=== PATIENT | female | born 1970 | race Caucasian/White ===

== ENCOUNTER → 2019-10-28 14:46 | Outpatient (CLI) | payer BC, SELFPAY ==
--- NOTE | 2019-10-28 | ECG_ITS ---
APPROVED REPORT Exam: Resting ECG HR:61 bpm ECG Measurements Heart Rate 61 AXES HI 172 P 41 QRSd 92 QRS -2 QT 422 T 36 QTc 424 <Conclusion> Normal sinus rhythm Normal ECG Electronically signed by : Justin Ayala, 10/29/2019 08:08:11
[2019-10-28 15:04] LABS: Basophils # 0.1 K/mm3 (0-0.2); Basophils % 0.6 % (0.1-2.0); Eosinophils # 0.3 K/mm3 (0.0-0.4); Eosinophils % 2.5 % (0.1-12.0); Hematocrit 38.5 % (37.0-47.0); Hemoglobin 12.3 g/dL (12.2-16.2); Lymphocytes # 3.1 K/mm3 (0.7-4.5); Lymphocytes % 30.9 % (10-50); Mean Corpuscular HGB Conc 31.8 g/dL (31.8-35.4); Mean Corpuscular Hemoglobin 26.3 pg (27.0-31.2); Mean Corpuscular Volume 82.8 fl (81-99); Mean Platelet Volume 7.3 fl (7.4-10.4); Monocytes # 0.6 K/mm3 (0.1-1.0); Monocytes % 5.5 % (1.7-9.3); Neutrophils # 6.1 K/mm3 (1.8-7.8); Neutrophils % 60.5 % (37.0-80.0); Platelet Count 494 K/mm3 (142-424); Red Blood Count 4.65 M/mm3 (4.20-5.40); Red Cell Distribution Width 15.4 % (11.5-17.5); White Blood Count 10.1 K/mm3 (4.8-10.8)
[2019-10-28 15:34] LABS: CKMB Relative Index 1.3 U/L (0-4.0); Creatine Kinase 63 U/L (26-192); Creatine Kinase MB 0.8 ng/ml (0.0-3.6); Troponin I < 0.02 ng/ml (0.00-0.06)
[2019-10-28 15:56] LABS: Alanine Aminotransferase 30 U/L (12-78); Albumin Level 3.5 gm/dL (3.4-5.0); Albumin/Globulin Ratio 0.9 (1.1-1.8); Alkaline Phosphatase 135 U/L (46-116); Anion Gap 13.6 mEq/L (5-15); Aspartate Amino Transferase 22 U/L (15-37); Bilirubin,Total 0.2 mg/dL (0.2-1.0); Blood Urea Nitrogen 12 mg/dL (7-18); Calcium 8.9 mg/dL (8.5-10.1); Carbon Dioxide 26 mmol/L (21.0-32.0); Chloride 104 mmol/L (98-107); Creatinine,Serum 0.69 mg/dL (0.55-1.02); Estimated Glomerular Filt Rate 91 ml/min (>60); Free T4 (Free Thyroxine) 0.73 ng/dl (0.76-1.46); GFR (African American) 110 ML/MIN (>60); Globulin 3.8 gm/dl (1.3-3.2); Potassium 4.6 mmoL/L (3.5-5.1); Sodium 139 mmol/L (136-145); Thyroid Stimulating Hormone 3.73 uIU/ml (0.358-3.740); Total Protein,Serum 7.3 gm/dL (6.4-8.2)
[2019-10-28 16:39] LABS: Glucose 82 mg/dL (74-106)
[2019-10-30 09:58] LABS: Vitamin B12 477 pg/mL (232-1245)
== END ==
PROVIDERS: Visit Provider Physician Assistant
DX: R07.9 Chest pain, unspecified (principal); R20.2 Paresthesia of skin
CPT/HCPCS: 36415; 80053; 82550; 82553; 82607; 84439; 84443; 84484; 85025; 93005

== ENCOUNTER → 2020-08-10 15:23 | Outpatient (CLI) | payer BC, SELFPAY ==
--- NOTE | 2020-08-10 15:35 | XR_ITS ---
PROCEDURE: XR ELBOW RT MIN 3V CLINICAL INDICATION: R ELBOW PAIN COMPARISON: No exams were available for comparison FINDINGS: No fracture or dislocation. No lytic or blastic change. There is normal mineralization. The joint spaces are well-preserved. No significant degenerative/arthritic changes. No erosive changes evident. Other findings:None. IMPRESSION: No acute findings. Dictated by: Monico Levy MD 08/10/2020 15:55 Monico Levy MD in [place] 08/10/2020 15:55
== END ==
PROVIDERS: PCP Family Medicine; Visit Provider Family Medicine
DX: M25.521 Pain in right elbow (principal)
CPT/HCPCS: 73080

== ENCOUNTER → 2021-01-12 10:09 | Outpatient (CLI) | payer BC, SELFPAY ==
[2021-01-12 11:32] LABS: Basophils % 0.5 % (0.1-2.0); Eosinophils % 0.2 % (0.1-12.0); Hematocrit 34.5 % (37.0-47.0); Hemoglobin 10.1 g/dL (12.2-16.2); Lymphocytes # 1.5 K/mm3 (0.7-4.5); Lymphocytes % 24.8 % (10-50); Mean Corpuscular HGB Conc 29.2 g/dL (31.8-35.4); Mean Corpuscular Hemoglobin 21.6 pg (27.0-31.2); Monocytes # 0.5 K/mm3 (0.1-1.0); Monocytes % 7.7 % (1.7-9.3); Neutrophils # 4.1 K/mm3 (1.8-7.8); Neutrophils % 66.7 % (37.0-80.0); Platelet Count 383 K/mm3 (142-424); Red Blood Count 4.66 M/mm3 (4.20-5.40); Red Cell Distribution Width 17.3 % (11.5-17.5); White Blood Count 6.1 K/mm3 (4.8-10.8)
== END ==
PROVIDERS: PCP Family Medicine; Visit Provider Family Medicine
DX: Z20.820 Contact with and (suspected) exposure to varicella (principal); U07.1 COVID-19
CPT/HCPCS: 36415; 85025; U0003

== ENCOUNTER → 2021-05-30 11:06 | Outpatient (CLI) | payer BC, SELFPAY ==
[2021-05-31 10:37] LABS: FSH 5.2 mIU/mL (.)
[2021-06-04 22:57] LABS: 1,25 Dihydroxy Vitamin D 53 pg/mL (.); 1,25-Dihydroxy, Vitamin D-2 <10 pg/mL (.); 1,25-Dihydroxy, Vitamin D-3 53 pg/mL (.)
== END ==
PROVIDERS: Visit Provider Nurse Practitioner Obstetrics & Gynecology
DX: Z01.419 Encounter for gynecological examination (general) (routine) without abnormal findings (principal)
CPT/HCPCS: 36415; 82652; 82670; 83001; 83002

== ENCOUNTER → 2021-06-06 13:39 | Outpatient (CLI) | payer BC, SELFPAY ==
--- NOTE | 2021-06-06 13:39 | US_ITS ---
PROCEDURE: US TRANSVAGINAL CLINICAL INDICATION: bulky uterus, abnormal vaginal bleeding COMPARISON: No exams were available for comparison FINDINGS: UTERUS: 12cm x 7cmx 6cm with a combined endometrial thickness of 29.3mm LEFT OVARY: [id number] with a volume of 17.8ml. 2 cm left ovarian cyst. RIGHT OVARY: [id number] with a volume of 7.9ml. Moderate to severe thickening of the endometrium at 2.9 cm with some heterogeneous echogenicity of the endometrium. No cul-de-sac fluid demonstrated IMPRESSION: Enlarged uterus with abnormal thickening of the endometrium with a small left ovarian cyst. Dictated by: Monico Levy MD 06/07/2021 10:54 Monico Levy MD in [place] 06/07/2021 10:54
== END ==
LOC: RAD 13:39
PROVIDERS: PCP Family Medicine; Visit Provider Nurse Practitioner Obstetrics & Gynecology
DX: N93.9 Abnormal uterine and vaginal bleeding, unspecified (principal); N85.2 Hypertrophy of uterus
CPT/HCPCS: 76830

== ENCOUNTER → 2021-06-18 11:59 | Outpatient (CLI) | payer BC, SELFPAY ==
[2021-06-18 12:47] LABS: Basophils # 0.1 K/mm3 (0-0.2); Basophils % 0.6 % (0.1-2.0); Eosinophils # 0.2 K/mm3 (0.0-0.4); Eosinophils % 1.9 % (0.1-12.0); Hematocrit 32.9 % (37.0-47.0); Hemoglobin 10.3 g/dL (12.2-16.2); Lymphocytes # 2.3 K/mm3 (0.7-4.5); Mean Corpuscular HGB Conc 31.4 g/dL (31.8-35.4); Mean Corpuscular Hemoglobin 27.8 pg (27.0-31.2); Mean Corpuscular Volume 88.7 fl (81-99); Mean Platelet Volume 7.8 fl (7.4-10.4); Monocytes # 0.3 K/mm3 (0.1-1.0); Monocytes % 3.9 % (1.7-9.3); Neutrophils # 5.9 K/mm3 (1.8-7.8); Neutrophils % 67.5 % (37.0-80.0); Platelet Count 524 K/mm3 (142-424); Red Blood Count 3.71 M/mm3 (4.20-5.40); White Blood Count 8.7 K/mm3 (4.8-10.8)
[2021-06-18 13:32] LABS: Anion Gap 11.9 mEq/L (5-15); Blood Urea Nitrogen 16 mg/dl (7-17); Carbon Dioxide 27 mmol/L (22.0-30.0); Chloride 105 mmol/L (98-107); Estimated Glomerular Filt Rate 89 ml/min (>60); GFR (African American) 108 ML/MIN (>60); Glucose 106 mg/dl (74-100); HCG Qualitative, Serum Negative (Negative); Potassium 3.9 mmoL/L (3.5-5.1); Sodium 140 mmol/L (136-145)
== END ==
PROVIDERS: Visit Provider Nurse Practitioner Obstetrics & Gynecology
DX: Z01.818 Encounter for other preprocedural examination (principal); Z11.52 Encounter for screening for COVID-19; N92.1 Excessive and frequent menstruation with irregular cycle
CPT/HCPCS: 36415; 80048; 84703; 85025; U0003

== ENCOUNTER 2021-06-20 07:27 | Day surgery (SDC) | payer BC, SELFPAY ==
[2021-06-20] VITALS (11 sets, daily range): BP systolic 108–149; BP diastolic 54–74; PULSE 56–77; RESP 12–18; TEMP 36.4–36.9; O2SAT 95–98; BMI 35.6
--- NOTE | 2021-06-20 07:52 | P.PN_ITS ---
[facility] Anesthesia Checklist - Patient Identification Patient Identification: Arm Band - Structural Data Admitted From: Home Planned Operative Procedure/s: Hysteroscopy, d & C, myosure Consent for Planned Operative Procedure(s) Verified: Yes - NPO Status Verified Time NPO: 00:00 - Airway Assessment C-Spine Mobility Assessed: Yes TMJ Mobility Assessed: Yes Dentition: Good Dentition - Neurological Assessment Level of Consciousness: Awake Hx Seizures: No Numbness or tingling in extremities: No - Anesthesia Plan Anesthesia Risk discussed: Yes Anesthesia Plan: Verified ASA Class: II Anesthesia Type: General [facility] History I have reviewed the patient's past medical history: Yes Medical History: Reports:: Hypertension *Have you ever received a pneumonia vaccine?: No *Have you received a flu vaccine this season?: No Other Medical History: Reports: Hypothyroidism Anesthesia experience/problems:: None Amputation: No Fractures: No - *Social History Smoking Status: Never smoker Alcohol Intake: never Substance Use Type: denies use *Occupational Status:: other *Travel in the last 8 weeks: None Family Hx:: No significant family history
--- NOTE | 2021-06-20 09:14 | HMH.OPNOTE ---
Date of procedure: 06/20/21 Pre-op Diagnosis:: Menorrhagia thickened endometrium Post-op Diagnosis:: Menorrhagia, thickened endometrium Procedure performed:: Hysteroscopy and MyoSure Surgeon:: Calvin Brady MD SOFTWARE SYSTEMS ANALYST:: Manfred Lange Anesthesia: LMA Estimated blood loss (mL): 50 Clinical Note:: She is a 51-year-old lady that has had heavy periods for the last few months. She has anemia as well. She had an ultrasound that showed endometrium greater than 2 cm in thickness. As result of that she was offered hysteroscopy and MyoSure. She had an endometrial biopsy in my office but I do not think I got a very good sample. Operative findings:: She had a thickened endometrium that was quite lush. Operative note:: She was taken the operating room where LMA anesthesia was found be adequate. She was prepped and draped in the normal sterile fashion in the lithotomy position. Weighted speculum is placed in vagina and the anterior lip of the cervix was grasped with a tenaculum. Lerma dilators used to dilate the cervix up to approximately 6 mm. I inserted the MyoSure hysteroscope into the uterine cavity and then added the resector. I resected the large portion of the endometrial cavity and this was sent to pathology. She tolerated she did well and was taken to recovery room in excellent condition. All sponge, instrument and needle counts were correct. The estimated blood loss was less than 50 cc. Condition: stable Disposition: PACU Specimens:: Endometrial sampling Complications:: None
--- NOTE | 2021-06-20 09:22 | P.PN_ITS ---
[facility] Anesthesia Record Part I Intake, IV Amount: 500 Estimated blood loss (mL): 50 Urine output (mL): 0 Blood Pressure: 138/65 SaO2: 95 Pulse Rate: 77 Respiratory Rate: 12 Temperature: 98.5 F Patient is:: Awake, Stable Stable to PACU at:: 09:20
--- NOTE | 2021-06-20 10:43 | PC.NURSE ---
0954-pt transported to post op via stretcher w/jim rails up and left in care of SALENA Heredia, detailed bedside report given to SALENA Heredia, bed locked in lowest position, vss, pt stable
--- NOTE | 2021-06-22 10:30 | HMH.ANESII ---
[facility] Anesthesia Record Part II Discharge Time: 09:50 Destination: formerly [facility] PACU nurse assessment reviewed?: Yes Patient Condition:: Good Anesthesia Complications:: None Swallowing reflex intact?: Yes Cyanosis?: No Blood Pressure: 112/54 Pulse Rate: 56 Temperature: 97.6 F Mental Status: Alert & Oriented Pain level:: 0 Nausea and/or vomitting:: None Intake, IV Amount: 1,500
[2021-06-22 10:31] VITALS: BP 112/54; PULSE 56; TEMP 36.4
== END 2021-06-20 11:07 | disposition home or self-care (01) ==
LOC: OR 07:30
PROVIDERS: PCP Family Medicine; Visit Provider Nurse Practitioner Obstetrics & Gynecology
PROC: 0UDB8ZZ Extraction of Endometrium, Via Natural or Artificial Opening Endoscopic (ICD-10-PCS; CPT 58558; principal; 2021-06-20 09:00)
DX: N95.0 Postmenopausal bleeding (principal); N92.1 Excessive and frequent menstruation with irregular cycle; N85.2 Hypertrophy of uterus; I10 Essential (primary) hypertension; E03.9 Hypothyroidism, unspecified; Z79.899 Other long term (current) drug therapy
CPT/HCPCS: 58563; 96374; 96375; J2405

== ENCOUNTER → 2022-01-21 12:23 | Outpatient (CLI) | payer BC, SELFPAY ==
--- NOTE | 2022-01-21 12:41 | XR_ITS ---
FINAL REPORT CLINICAL HISTORY: COVID TESTING, cough FINDINGS: A single view of the chest was obtained. The heart is normal in size. The mediastinum is unremarkable. There is mild bibasilar atelectasis or scarring. There is no active disease. There is no pleural effusion. There is no pneumothorax. There is no acute osseous abnormality. IMPRESSION: No acute cardiopulmonary process. Reviewed, Interpreted and Dictated by Jf Oviedo III, MD Transcribed by Kamini Rios Authenticated by Jf Oviedo III, MD on 01/21/2022 02:59:20 PM [facility]
[2022-01-21 13:14] LABS: Basophils # 0.1 K/mm3 (0-0.2); Basophils % 0.5 % (0.1-2.0); Eosinophils # 0.2 K/mm3 (0.0-0.4); Eosinophils % 1.6 % (0.1-12.0); Hematocrit 43.9 % (37.0-47.0); Hemoglobin 14.1 g/dL (12.2-16.2); Lymphocytes # 2.2 K/mm3 (0.7-4.5); Lymphocytes % 20.3 % (10-50); Mean Corpuscular HGB Conc 32.2 g/dL (31.8-35.4); Mean Corpuscular Hemoglobin 30.3 pg (27.0-31.2); Mean Corpuscular Volume 94.4 fl (81-99); Mean Platelet Volume 7.7 fl (7.4-10.4); Monocytes # 0.4 K/mm3 (0.1-1.0); Monocytes % 3.8 % (1.7-9.3); Neutrophils # 7.8 K/mm3 (1.8-7.8); Neutrophils % 73.8 % (37.0-80.0); Platelet Count 541 K/mm3 (142-424); Red Blood Count 4.65 M/mm3 (4.20-5.40); Red Cell Distribution Width 13.2 % (11.5-17.5); White Blood Count 10.6 K/mm3 (4.8-10.8)
== END ==
LOC: COVID.OUT 12:24
PROVIDERS: PCP Family Medicine; Visit Provider Family Medicine
DX: Z20.822 Contact with and (suspected) exposure to COVID-19 (principal)
CPT/HCPCS: 36415; 71045; 85025

== ENCOUNTER → 2022-05-16 10:08 | Outpatient (CLI) | payer BC, SELFPAY ==
--- NOTE | 2022-05-16 10:10 | MM_ITS ---
PROCEDURE INFORMATION: Exam: MG Bilateral Screening 3D Mammography Exam date and time: 05/16/2022 10:07 AM Age: 52 years old Clinical indication: Screening examination TECHNIQUE: Imaging protocol: Bilateral Screening tomosynthesis and 2D mammography including computer-aided detection (CAD) when performed. COMPARISON: No relevant prior studies available. FINDINGS: MAMMOGRAPHY: Breast composition: There are scattered areas of fibroglandular density. Mass: None. Architectural distortion: None. Calcifications: No suspicious calcifications. Asymmetric density: None. Skin thickening: None. Axillary adenopathy: None. IMPRESSION: No mammographic evidence of malignancy. Annual screening is recommended unless otherwise clinically indicated. ASSESSMENT: BI-RADS Category 1: Negative
== END ==
PROVIDERS: PCP Family Medicine; Visit Provider Family Medicine
DX: Z12.31 Encounter for screening mammogram for malignant neoplasm of breast (principal)
CPT/HCPCS: 77063; 77067

== ENCOUNTER 2022-10-16 09:25 | Emergency (ER) | payer BC, SELFPAY ==
[2022-10-16 09:43] VITALS: BP 181/93; PULSE 60; RESP 18; TEMP 36.9; O2SAT 98; BMI 39.4
--- NOTE | 2022-10-16 09:44 | EXP.UTC ---
Discharge Plan Disposition Patient Disposition: Home, Self-Care Condition: Good Prescriptions Prescriptions: New ofloxacin 0.3 % drops See Rx Instructions .ROUTE .COMPLEX Qty: 5 0RF Rx Instructions: put 2 drps into affected eye(s) every 4 h x 2 days, then 1 drp 4 times/day days 3-7 No Action irbesartan 300 mg tablet 300 mg PO Mirena 20 mcg/24 hours (7 yrs) 52 mg intrauterine device 1 device INTRAUTERI ONCE methimazole 5 mg tablet 5 mg PO BID bisoprolol-hydrochlorothiazide 2.5-6.25 mg tablet 2 tab PO DAILY ferrous sulfate 325 mg (65 mg iron) tablet 325 mg PO TID ergocalciferol (vitamin D2) 50 mcg (2,000 unit) tablet 50 mcg PO DAILY multivitamin Tablet 1 tab PO DAILY meloxicam 15 mg tablet 15 mg PO DAILY fexofenadine [Amy Allergy] 60 mg tablet 60 mg PO BID progesterone micronized [Prometrium] 100 mg capsule 100 mg PO DAILY 30 Days Qty: 30 5RF Referrals Follow up/Referrals: Holger Valadez MD [Primary Care Provider] - See instructions Activity Restrictions/Add. Instructions Additional Instructions/Restrictions: Use the eye drops as directed. Strict hand washing in the house hold, because conjunctivitis is very contagious. Follow up with your regular doctor. GO TO THE ER FOR ANY WORSENING SYMPTOMS OR CONCERNS Clinical Impressions Clinical Impression: Conjunctivitis Instructions Patient Instructions: How to Instill Eye Drops, Conjunctivitis, DI for Conjunctivitis Discharge ED [place] [facility] [place] Stated complaint: Eye redness w/drainage Time Seen by Provider: 10/16/22 09:44 History of Present Illness Provider Complaint: She states that since very early this morning, she has been having bilateral eye matting with yellowish discharge. She denies any foreign body or injury. Related Data Home Medications Medication Instructions Recorded Confirmed bisoprolol 2.5 2 tab PO DAILY Hypertension 05/30/21 05/15/22 mg-hydrochlorothiazide 6.25 mg tablet methimazole 5 mg tablet 5 mg PO BID hyperthyroidism 05/30/21 05/15/22 ergocalciferol (vitamin D2) 50 mcg 50 mcg PO DAILY Diet supplement 06/18/21 05/15/22 (2,000 unit) tablet ferrous sulfate 325 mg (65 mg 325 mg PO TID Diet supplement 06/18/21 05/15/22 iron) tablet fexofenadine 60 mg tablet (Amy 60 mg PO BID Allergy symptoms 06/18/21 05/15/22 Allergy) meloxicam 15 mg tablet 15 mg PO DAILY Arthritis 06/18/21 05/15/22 multivitamin 1 tab PO DAILY Diet supplement 06/18/21 05/15/22 irbesartan 300 mg tablet 300 mg PO 04/10/22 05/15/22 levonorgestrel 20 mcg/24 hours (8 1 device intrauterine ONCE 05/15/22 05/15/22 yrs) 52 mg intrauterine device (Mirena) Previous Rx's Medication Instructions Recorded progesterone micronized 100 mg 100 mg PO DAILY 30 days #30 caps 01/04/22 capsule (Prometrium) ofloxacin 0.3 % eye drops See Rx Instructions ophthalmic 10/16/22 (eye) .COMPLEX #5 mL Allergies Allergy/AdvReac Type Severity Reaction Status Date / Time No Known Allergies Allergy Verified 10/16/22 09:45 [facility] Disclaimer: The information contained in this section may have been updated after the patient was seen, as this information can be updated by other users. Social History Smoking Status: Never smoker alcohol intake: never substance use type: denies use current occupational status: other Travel in the last 8 weeks: None ROS Obtained: Yes All systems reviewed & no additional complaints except as documented Constitutional Constitutional: Denies chills and Denies fever(s) Eyes Eyes: Reports eye discharge ENT Ears, Nose, Mouth, and Throat: Denies dizziness, Denies otalgia and Denies sore throat Cardiovascular Cardiovascular: Denies chest pain Respiratory Respiratory: Denies shortness of breath, Denies chest congestion, Denies cough, Denies stridor
[2022-10-16 10:11] VITALS: BP 181/93; PULSE 60; RESP 18; TEMP 36.9
== END 2022-10-16 10:14 | disposition home or self-care (01) ==
PROVIDERS: Emergency Provider Nurse Practitioner Family; PCP Family Medicine
DX: H10.9 Unspecified conjunctivitis (principal)
CPT/HCPCS: 99212; G0463

== ENCOUNTER → 2023-04-03 12:35 | Outpatient (CLI) | payer BC, SELFPAY ==
--- NOTE | 2023-04-03 12:35 | US_ITS ---
PROCEDURE: US TRANSVAGINAL CLINICAL INDICATION: irreg. bleeding and iud in position COMPARISON: No exams were available for comparison FINDINGS: UTERUS: 12cm x 7cmx 6cm with a combined endometrial thickness of 3.4mm. There is an IUD in the lower uterine segment and upper cervix. LEFT OVARY: [id number] with a volume of 37.4ml.The left ovary there are 2 small follicles measuring 2.9 centimeters and 2.4 centimeters. There is a reviewed by a thin wall. RIGHT OVARY: 2cmx [id number] with a volume of 2.7ml. The right ovary has a small echogenic focus. Doppler flow to both ovaries are seen. There is no fluid in the cul-de-sac. IMPRESSION: 1. Bulky anteverted uterus with a thin endometrium. 2. IUD out of position in the lower uterine segment /upper cervix. 3. The ovaries appear normal with a couple small follicles in the left ovary. Dictated by: Calvin Brady MD 04/06/2023 09:02 Calvin Brady MD in [place] 04/06/2023 09:02
== END ==
LOC: RAD 12:35
PROVIDERS: PCP Family Medicine; Visit Provider Nurse Practitioner Obstetrics & Gynecology
DX: N92.1 Excessive and frequent menstruation with irregular cycle (principal); Z97.5 Presence of (intrauterine) contraceptive device
CPT/HCPCS: 76830

== ENCOUNTER → 2023-05-23 10:31 | Outpatient (CLI) | payer BC, SELFPAY ==
--- NOTE | 2023-05-23 10:31 | MM_ITS ---
PROCEDURE INFORMATION: Exam: MG Bilateral Screening 3D Mammography Exam date and time: 05/23/2023 10:48 AM Age: 53 years old Clinical indication: Screening mammogram. No personal or family history of breast cancer TECHNIQUE: Imaging protocol: Bilateral Screening tomosynthesis and 2D mammography including computer-aided detection (CAD) when performed. COMPARISON: MG MM DIG SCREENING MAMM BI W/CAD 05/16/2022 10:07 AM FINDINGS: MAMMOGRAPHY: Breast composition: There are scattered areas of fibroglandular density. Mass: None. Architectural distortion: No new or suspicious architectural distortion. Calcifications: No new or suspicious calcifications are present Asymmetric density: No new or suspicious asymmetric density is present Skin thickening: None. Axillary adenopathy: 0.9 cm suspected lymph node within the upper outer posterior right breast (axillary tail) should be further assessed with spot views in CC/MLO projection. Ultrasound should also be performed. IMPRESSION: 0.9 cm suspected lymph node within the upper outer posterior right breast (axillary tail) should be further assessed with spot views in CC/MLO projection. Ultrasound should also be performed. ASSESSMENT: BI-RADS category 0: Incomplete-need additional imaging evaluation
== END ==
PROVIDERS: PCP Family Medicine; Visit Provider Nurse Practitioner Obstetrics & Gynecology
DX: Z12.31 Encounter for screening mammogram for malignant neoplasm of breast (principal)
CPT/HCPCS: 77063; 77067

== ENCOUNTER → 2023-06-13 13:24 | Outpatient (CLI) | payer BC, SELFPAY ==
--- NOTE | 2023-06-13 13:25 | US_ITS ---
PROCEDURE INFORMATION: Exam: US Right Breast, Complete MG Right Diagnostic Breast Tomosynthesis Exam date and time: 06/13/2023 1:35 PM Age: 53 years old Clinical indication: Patient recalled on the basis of a screening mammogram for further evaluation; Right breast; mass TECHNIQUE: Imaging protocol: Complete ultrasound of all four quadrants of the right breast and the retroareolar regions, including ultrasound of the axilla when performed. Right Diagnostic tomosynthesis and 2D mammography including computer-aided detection (CAD) when performed. Unilateral or bilateral exam. COMPARISON: 1. MG MM DIG SCREENING MAMM BI W/CAD 05/23/2023 10:48 AM 2. MG MM DIG SCREENING MAMM BI W/CAD 05/16/2022 10:07 AM FINDINGS: MAMMOGRAPHY: Digital diagnostic spot compression views of the right axillary tail demonstrates a fat containing benign-appearing subcentimeter intramammary lymph node. ULTRASOUND: Sonographic images of the left breast including the retroareolar region, all 4 quadrants and the axilla do not demonstrate any solid masses. Incidental 0.7 cm cyst in the 10 o'clock axis 10 cm from the nipple. No architectural distortion or acoustical shadowing. No skin thickening or axillary adenopathy. IMPRESSION: No mammographic or sonographic evidence of malignancy. Benign lymph node in the right axillary tail. Annual bilateral mammographic screening is recommended unless otherwise clinically indicated. ASSESSMENT: BI-RADS Category 2: Benign
== END ==
LOC: RAD 13:25
PROVIDERS: PCP Family Medicine; Visit Provider Nurse Practitioner Obstetrics & Gynecology
DX: R92.8 Other abnormal and inconclusive findings on diagnostic imaging of breast (principal)
CPT/HCPCS: 76641; 77061; 77065; G0279

== ENCOUNTER 2023-08-08 14:53 | Emergency (ER) | payer BC, SELFPAY ==
--- NOTE | 2023-08-08 15:10 | HMH.EDGENADL ---
Discharge Plan Disposition Patient Disposition: Home, Self-Care Chief Complaint: Vaginal Bleeding Prescriptions Prescriptions: No Action irbesartan 300 mg tablet 300 mg PO methimazole 5 mg tablet 5 mg PO BID ferrous sulfate 325 mg (65 mg iron) tablet 325 mg PO TID ergocalciferol (vitamin D2) 50 mcg (2,000 unit) tablet 50 mcg PO DAILY multivitamin Tablet 1 tab PO DAILY meloxicam 15 mg tablet 15 mg PO DAILY fexofenadine [Amy Allergy] 60 mg tablet 60 mg PO BID triamterene-hydrochlorothiazid 37.5-25 mg tablet 1 tab PO amlodipine 10 mg tablet 10 mg PO bisoprolol fumarate 10 mg tablet 10 mg PO Mirena 21 mcg/24 hours (8 yrs) 52 mg intrauterine device 1 device intrauterine Referrals Follow up/Referrals: Holger Valadez MD [Primary Care Provider] - See instructions Jyoti Gilmore DO [Staff Physician] - See instructions Activity Restrictions/Add. Instructions Additional Instructions/Restrictions: Call your family doctor to establish care for this visit to the emergency department and schedule follow-up within 48 hours to ensure improvement. If you have any worsening of your condition or any other concerning signs or symptoms, return to the emergency department or your primary care doctor for further evaluation. Dr. Gilmore's information has been placed here, you can call if you continue to have worsening symptoms, however maintain your follow-up on the . Clinical Impressions Clinical Impression: Menorrhagia Discharge ED Provider: Julian Murrieta General Adult HPI General Chief complaint: Vaginal Bleeding Stated complaint: BEELDING IN URINATION Time Seen by Provider: 08/08/23 14:59 History of Present Illness HPI narrative: 53-year-old female with history of irregular menstrual bleeding and hypertension presenting with menstrual bleeding. Patient states she is following with gynecology. Next appointment is on . Patient states that she has been bleeding on and off for the past couple of days, but today, started saturating 1 tampon every 1-2 hours. Has been doing that since around 10 AM. No lightheadedness, chest pain, shortness of breath, but patient is having associated abdominal cramping. Passing clots, also having dysuria, uncertain if she is having hematuria given the amount of bleeding. Related Data Home Medications Medication Instructions Recorded Confirmed methimazole 5 mg tablet 5 mg PO BID hyperthyroidism 05/30/21 05/14/23 ergocalciferol (vitamin D2) 50 mcg 50 mcg PO DAILY Diet supplement 06/18/21 05/14/23 (2,000 unit) tablet ferrous sulfate 325 mg (65 mg 325 mg PO TID Diet supplement 06/18/21 05/14/23 iron) tablet fexofenadine 60 mg tablet (Amy 60 mg PO BID Allergy symptoms 06/18/21 05/14/23 Allergy) meloxicam 15 mg tablet 15 mg PO DAILY Arthritis 06/18/21 05/14/23 multivitamin 1 tab PO DAILY Diet supplement 06/18/21 05/14/23 irbesartan 300 mg tablet 300 mg PO 04/10/22 05/14/23 amlodipine 10 mg tablet 10 mg PO 03/31/23 05/14/23 bisoprolol fumarate 10 mg tablet 10 mg PO 03/31/23 05/14/23 triamterene 37.5 1 tab PO 03/31/23 05/14/23 mg-hydrochlorothiazide 25 mg tablet levonorgestrel 21 mcg/24 hours (8 1 device intrauterine 04/16/23 05/14/23 yrs) 52 mg intrauterine device (Mirena) Allergies Allergy/AdvReac Type Severity Reaction Status Date / Time No Known Allergies Allergy Verified 05/14/23 09:53 [facility] Disclaimer: The information contained in this section may have been updated after the patient was seen, as this information can be updated by other users. Medical History Anemia Hypertension Irregular intermenstrual bleeding Overactive thyroid gland Vitamin D deficiency Surgical History History of endometrial ablation Hx of section Family History (Reviewed
[2023-08-08 15:15] VITALS: BP 153/79; PULSE 53; RESP 19; TEMP 36.7; O2SAT 98; BMI 34.0
[2023-08-08 15:19] LABS: Microscopic, Urine URINE MICROSCOPIC (MICROSCOPIC)
[2023-08-08 15:35] LABS: Appearance,Urine CLEAR (Clear); Blood, Urine 3+ (Negative); Color,Urine YELLOW (Yellow); Glucose,Urine (UA) Negative (Negative); Ketones,Urine TRACE (Negative); Leukocyte Esterase,Urine Negative (Negative); Nitrate,Urine Negative (Negative); Protein,Urine 1+ (Negative); Specific Gravity, Urine >= 1.030 (1.005-1.030); Urobilinogen,Urine 0.2 EU/dl (0.2)
[2023-08-08 15:44] LABS: Basophils # 0.1 K/mm3 (0-0.2); Basophils % 0.6 % (0.1-2.0); Eosinophils # 0.3 K/mm3 (0.0-0.4); Eosinophils % 3.2 % (0.1-12.0); Hematocrit 42.8 % (37.0-47.0); Hemoglobin 14.3 g/dL (12.2-16.2); Lymphocytes # 2.4 K/mm3 (0.7-4.5); Lymphocytes % 23.1 % (10-50); Mean Corpuscular HGB Conc 33.4 g/dL (31.8-35.4); Mean Platelet Volume 8.1 fl (7.4-10.4); Monocytes # 0.6 K/mm3 (0.1-1.0); Monocytes % 6.2 % (1.7-9.3); Neutrophils # 6.8 K/mm3 (1.8-7.8); Neutrophils % 66.9 % (37.0-80.0); Platelet Count 367 K/mm3 (142-424); Red Cell Distribution Width 13.5 % (11.5-17.5); White Blood Count 10.2 K/mm3 (4.8-10.8)
[2023-08-08 15:47] LABS: Chloride 107 mmol/L (98-107); Potassium 4.1 mmoL/L (3.5-5.1); Sodium 139 mmol/L (136-145)
--- NOTE | 2023-08-08 15:48 | PC.NURSE ---
Rounded on pt. Warm blanket provided. No other needs voiced.
[2023-08-08 15:50] LABS: Alanine Aminotransferase 59 U/L (12-78); Albumin Level 3.9 g/dl (3.5-5.0); Albumin/Globulin Ratio 1.2 (1.1-1.8); Alkaline Phosphatase 96 U/L (38-126); Anion Gap 12.1 mEq/L (5-15); Aspartate Amino Transferase 45 U/L (14-36); Bilirubin,Total 0.5 mg/dl (0.2-1.3); Blood Urea Nitrogen 18 mg/dl (7-17); Calcium 8.6 mg/dl (8.4-10.2); Carbon Dioxide 24 mmol/L (22.0-30.0); Creatinine Clearance Estimated 100 mL/min (50-200); Estimated Glomerular Filt Rate 52 ml/min (>60); GFR (African American) 63 ML/MIN (>60); Globulin 3.2 g/dL (1.3-3.2); Glucose 91 mg/dl (74-100); Total Protein,Serum 7.1 g/dl (6.3-8.2)
[2023-08-08 15:58] LABS: Bilirubin,Urine Negative (Negative)
[2023-08-08 16:00] LABS: Bacteria,Urine Trace /lpf; Squamous Epithelial Cell,Urine Occasional #/hpf (0-5); WBC,Urine Occasional #/hpf (0-3)
[2023-08-08 16:06] LABS: Activated Partial Thrombo Time 22.7 seconds (22.8-30.6); INR 0.92 (0.9-1.1)
[2023-08-08 16:54] VITALS: BP 153/79; PULSE 53; RESP 19; TEMP 36.7; O2SAT 98
== END 2023-08-08 16:55 | disposition home or self-care (01) ==
PROVIDERS: Emergency Provider Emergency Medicine; PCP Family Medicine
DX: N92.0 Excessive and frequent menstruation with regular cycle (principal); I10 Essential (primary) hypertension; E55.9 Vitamin D deficiency, unspecified; E05.90 Thyrotoxicosis, unspecified without thyrotoxic crisis or storm; D64.9 Anemia, unspecified
CPT/HCPCS: 80053; 81001; 85025; 85610; 85730; 99283

== ENCOUNTER 2023-12-09 16:41 | Outpatient (CLI) | payer BC, SELFPAY ==
--- NOTE | 2023-12-09 16:52 | XR_ITS ---
PROCEDURE INFORMATION: Exam: XR Chest Exam date and time: 12/09/2023 4:55 PM Age: 53 years old Clinical indication: Shortness of breath TECHNIQUE: Imaging protocol: Radiologic exam of the chest. Views: 2 views. COMPARISON: CR XR CHEST PORTABLE 01/21/2022 1:05 PM FINDINGS: Lungs: Mild right basilar atelectasis versus scarring. No pulmonary edema or consolidation. Pleural spaces: No pleural effusion. No pneumothorax. Heart/Mediastinum: Cardiomediastinal silhouette is normal. Bones/joints: No acute abnormality. IMPRESSION: No acute cardiopulmonary disease.
== END 2023-12-09 23:59 ==
LOC: RAD 16:42
PROVIDERS: PCP Family Medicine; Visit Provider Family Medicine
DX: R06.02 Shortness of breath (principal)
CPT/HCPCS: 71046

== ENCOUNTER 2023-12-12 07:43 | Outpatient (CLI) | payer BC, SELFPAY ==
[2023-12-12] MEDS: ALBUTEROL 0.083% 2.5 MG/3 ML NEB IH (08:25)
== END 2023-12-12 23:59 ==
LOC: RT 07:44
PROVIDERS: PCP Family Medicine; Visit Provider Family Medicine
DX: R06.02 Shortness of breath (principal)
CPT/HCPCS: 94060

== ENCOUNTER 2024-01-30 14:51 | Outpatient (CLI) | payer BC, SELFPAY ==
--- NOTE | 2024-01-30 | CA_ITS ---
APPROVED REPORT EXAM: Comprehensive 2D, Doppler, and color-flow Echocardiogram Reaming Machine Operator For Plastic: Lily Corcoran RT(R) Ht: 5 ft 9 in Wt: 226lbs BSA: 2.18 BP: 126/78 mmHg Indications: SOA, edema, anemia, HTN, obesity 2D Dimensions EF AP4 35.70 % GL Strain -11.7 % M-Mode Dimensions RVDd 3.83 cm (0.9-2.6) LA Diam 3.62 cm (1.9-4.0) LVDd 3.40 cm (3.5-5.7) LVDs 2.55 cm (3.5-5.7) IVSd 0.94 cm (0.6-1.1) PWd 0.89 cm (0.6-1.1) EF (Teich) 50.60% FS 25.00% EDV (Teich) 47.40 mL ESV (Teich) 23.40 mL LV Diastology E Decel Time 287 (160-240 msec) E/A Ratio 1.0 Mitral Valve MV E Max Eliseo. 64.0 (40-130 cm/s) MV A Velocity 66.0 (40-130 cm/s) E/A Ratio 0.97 MV PHT 84.0 ms Left Ventricle The left ventricle is normal size. The left ventricular systolic function is normal. The left ventricular ejection fraction is within the normal range. There is normal left ventricular wall thickness. There is normal LV segmental wall motion. The left ventricular diastolic function is normal. LVEF is 60%. Right Ventricle The right ventricle is normal size. The right ventricular systolic function is normal. Atria The left atrium size is normal. The right atrium size is normal. There is no Doppler evidence of interatrial shunt. Aortic Valve The aortic valve is mildly thickened. There is no aortic valvular stenosis. No aortic regurgitation is present. Mitral Valve The mitral valve is normal in structure. No evidence of mitral valve stenosis. There is no mitral valve regurgitation noted. Tricuspid Valve The tricuspid valve leaflets are thin and pliable. Trace tricuspid regurgitation. RVSP is 20-25 mmHg. Pulmonic Valve The pulmonary valve is normal in structure. Trace pulmonic regurgitation. Great Vessels The aortic root is normal in size. The ascending aorta is normal in size. IVC is normal in size and collapses >50% with inspiration. Pericardium There is no pericardial effusion. Other Information Study Quality: Fair Conclusion Normal biventricular systolic function. No significant valvular stenosis or regurgitation. Electronically signed by : Lucille Wetzel MD 02/03/2024 22:44:33
== END 2024-01-30 23:59 ==
LOC: RT 14:52
PROVIDERS: PCP Family Medicine; Visit Provider Family Medicine
DX: R06.02 Shortness of breath (principal); I10 Essential (primary) hypertension; R60.9 Edema, unspecified
CPT/HCPCS: 93306

== ENCOUNTER 2024-07-03 18:04 | Emergency (ER) | payer BC, SELFPAY ==
[2024-07-03 18:20] VITALS: BP 168/85; PULSE 64; RESP 20; TEMP 36.8; O2SAT 97; BMI 32.5
[2024-07-03 18:32] LABS: UTC Strep Screen (Rapid) Negative (Negative)
--- NOTE | 2024-07-03 18:32 | ED_ITS ---
Discharge Plan Disposition Patient Disposition: Home, Self-Care Condition: Good Prescriptions Prescriptions: New azithromycin 250 mg tablet 250 mg PO DIRECTED Qty: 6 0RF Rx Instructions: Take two (2) tablets on day #1, then one (1) tablet day #2 thru #5 No Action irbesartan 300 mg tablet 300 mg PO DAILY methimazole 5 mg tablet 5 mg PO BID ferrous sulfate 325 mg (65 mg iron) tablet 325 mg PO TID bisoprolol fumarate 10 mg tablet 10 mg PO DAILY famotidine 40 mg tablet 40 mg PO DAILY cholecalciferol (vitamin D3) [Vitamin D3] 25 mcg (1,000 unit) Capsule 25 mcg PO DAILY Referrals Follow up/Referrals: Holger Valadez MD [Primary Care Provider] - See instructions Activity Restrictions/Add. Instructions Additional Instructions/Restrictions: Start antibiotics today be sure to take it as ordered with the full length of time although you should start feeling better in 24-48 hours. Change toothbrush and toothpaste 24-48 hours after starting antibiotics Tylenol or Motrin as needed for fever or pain Encourage fluids, water, Gatorade, Powerade, try cold fluids, popsicles, ice cream will make it feel better You are contagious for 24 hours. Avoid kissing anyone, no eating or drinking after anyone. You are contagious. Follow-up the ER for new or worsening symptoms or no noticeable improvement over the next 24-48 hours. Follow-up with PCP this week. Clinical Impressions Clinical Impression: Strep sore throat Instructions Patient Instructions: DI for Strep Throat Print Language Print Language: Prydeinig Discharge ED Provider: Bandar ([facility] [place] HPI General Stated complaint: sore throat body aches Mode of Arrival: Ambulatory Source of Information: Patient Limitations: No Limitations Time Seen by Provider: 07/03/24 18:32 Description of Symptoms (Recalled from Triage Doc. by RN): PATIENT C/O SORE THROAT AND BODY ACHES THAT STARTED THIS MORNING HEENT Symptoms (Recalled from RN notes): Yes Resp Symptoms (Recalled from RN notes): No Skin Symptoms (Recalled from RN notes): No MS Symptoms (Recalled from RN notes): No Functional Status (Recalled from RN notes): WNL History of Present Illness Provider Complaint: 54 yr old female presents for sore throat and body aches that started today, was dx with strep Related Data Home Medications ?Medication ?Instructions ?Recorded ?Confirmed methimazole 5 mg tablet 5 mg PO BID hyperthyroidism 05/30/21 07/03/24 ferrous sulfate 325 mg (65 mg 325 mg PO TID Diet supplement 06/18/21 07/03/24 iron) tablet irbesartan 300 mg tablet 300 mg PO DAILY 04/10/22 07/03/24 bisoprolol fumarate 10 mg tablet 10 mg PO DAILY 03/31/23 07/03/24 cholecalciferol (vitamin D3) 25 25 mcg PO DAILY 07/03/24 07/03/24 mcg (1,000 unit) capsule (Vitamin D3) famotidine 40 mg tablet 40 mg PO DAILY 07/03/24 07/03/24 Previous Rx's ?Medication ?Instructions ?Recorded azithromycin 250 mg tablet 250 mg PO DIRECTED #6 tabs 07/03/24 Allergies Allergy/AdvReac Type Severity Reaction Status Date / Time No Known Allergies Allergy Verified 08/14/23 15:31 Worker's Comp Is this a Worker's Comp case?: No [facility] Disclaimer: The information contained in this section may have been updated after the patient was seen, as this information can be updated by other users. Medical History , IT COORDINATOR) Irregular intermenstrual bleeding Vitamin D deficiency Anemia Hypertension Overactive thyroid gland Surgical History , IT COORDINATOR) History of endometrial ablation Hx of section Family History , IT COORDINATOR) Diabetes Cancer Hypertension Stroke Social History , IT COORDINATOR) Smoking Status: Never smoker alcohol intake: never substance use type: denies use current occupational status: other Travel in the last 8 weeks: None ROS Obtained: Yes All systems reviewed & no additional complaints except as documented Constitutional Constitutional: Reports system reviewed and no additional complaints, except as documented ENT Ears, Nose, Mouth, and Throat: Reports system reviewed and no additional complaints, except as documented, Reports as per HPI and Reports sore throat Cardiovascular Cardiovascular: Reports system reviewed and no additional complaints, except as documented Respiratory Respiratory: Reports system reviewed and no additional complaints, except as documented Musculoskeletal Musculoskeletal: Reports system reviewed and no additional complaints, except as documented Integumentary/Breasts Skin/Breast: Reports system reviewed and no additional complaints, except as documented Endocrine Endocrine: Reports system reviewed and no additional complaints, except as documented Hematologic/Lymphatic Henatologic/Lymphatic: Reports system reviewed and no additional complaints, except as documented Physical Exam General General appearance: alert and in no apparent distress Eye Eye exam: Present normal appearance and PERRL ENT ENT exam: Present mucous membranes moist and TM's normal bilaterally Expanded ENT Exam Throat exam: Present tonsillar erythema and tonsillar exudate Respiratory Respiratory exam: Present normal lung sounds bilaterally Cardiovascular Cardiovascular exam: Present regular rate and normal rhythm Neurological Exam Neurological exam: Present alert and oriented X3 Skin Skin exam: Present warm and intact Medical Decision Making Medical Records Medical records reviewed: Yes I reviewed the patient's medical records. Roel Inquiry Pt receiving controlled substance: No Roel was queried for this patient: No Vital Signs: 07/03/24 18:20 Temperature 98.3 F Temperature Source Oral Pulse Rate [Left Brachial] 64 Respiratory Rate 20 Blood Pressure [Left Arm] 168/85 H Blood Pressure Mean [Left Arm] 112 Blood Pressure Source [Left Arm] Automatic Cuff Blood Pressure Position [Left Arm] Sitting 02 Sat by Pulse Oximetry 97 Oxygen Delivery Method Room Air Lab Data Lab results reviewed: Yes I reviewed the patient's lab results. Lab Results 07/03/24 18:31: Strep Scn [facility] Negative
[2024-07-03 18:41] VITALS: BP 168/85; PULSE 64; RESP 20; TEMP 36.8; O2SAT 97
== END 2024-07-03 18:43 | disposition home or self-care (01) ==
PROVIDERS: Emergency Provider Nurse Practitioner Family; PCP Family Medicine
DX: J02.0 Streptococcal pharyngitis (principal); R07.0 Pain in throat; M79.18 Myalgia, other site
CPT/HCPCS: 87880; 99212; 99214; G0463

== ENCOUNTER 2025-01-22 10:21 | Outpatient (CLI) | payer BC, SELFPAY ==
--- NOTE | 2025-01-22 | XR_ITS ---
PROCEDURE INFORMATION: Exam: XR Lumbosacral Spine Exam date and time: 01/22/2025 10:31 AM Age: 54 years old Clinical indication: Low back pain; Additional info: Lbp, right leg pain TECHNIQUE: Imaging protocol: Radiologic exam of the lumbosacral spine. Views: 2 or 3 views. Total images: 4 COMPARISON: No relevant prior studies available. FINDINGS: Bones/joints: Slight rightward curvature of the lumbar spine with mild degenerative changes. 3 mm retrolisthesis of L1 on L2. Disc space narrowing noted T12-L1, L1-L2. No evidence of acute fracture. Soft tissues: Unremarkable. IMPRESSION: 1. Slight rightward curvature of the lumbar spine with mild degenerative changes. 2. 3 mm retrolisthesis of L1 on L2. 3. No evidence of acute fracture.
== END 2025-01-22 23:59 | disposition home or self-care (01) ==
LOC: RAD 10:22
PROVIDERS: PCP Family Medicine; Visit Provider Family Medicine
DX: M54.50 Low back pain, unspecified (principal); M79.604 Pain in right leg
CPT/HCPCS: 72100

== ENCOUNTER 2025-08-08 07:38 | Outpatient (CLI) | payer BC, SELFPAY ==
--- OUTSIDE RECORDS SUMMARY | 2024-12-03 07:15 | XMS_ITS ---
Author Organization [facility] Address [address] [place] [id number] Care Team Providers Care Agricultural Researcher Name Role Phone Holger Valadez Primary Care Provider Allergies No Known Allergies REASON FOR VISIT b/p has been high Medications Medication SIG (Take, Route, Frequency, Duration) Notes Start Date End Date Status methIMAzole 5 MG 1 tab(s) orally once daily; Duration: 90 days Active Famotidine 40 MG 1 tab(s) orally once a day (at bedtime); Duration: 90 days Active Ferrous Sulfate 325 (65 Fe) MG 1 tab(s) orally 3 times a day; Duration: 30 day(s) Active Albuterol Sulfate HFA 108 (90 Base) MCG/ACT INHALE 1 PUFF BY MOUTH EVERY 4 HOURS NEEDED Active Vitamin D3 50 MCG (2000 UT) 1 tab(s) ora lly once a day 11/09/2020 Active amLODIPine Besylate 10 MG 1 tablet Orall y Once a day; Duration: 30 day(s) 12/03/2024 Active Bisoprolol Fumarate 10 MG 2 tab(s) orall y once a day Active Triamcinolone Acetonide 0.1 % 1 osmar applied topically 3 times a day 05/01/2020 Active Irbesartan 300 MG 1 tab(s) orally once a day Active Vital Signs Blood pressure systolic 180 mm Hg 12/03/19 25 Blood pressure diastolic 104 mm Hg 025 Heart Rate 76 /min 12/03/2024 Height 68.5 in 12/03/2024 Weight 249 lbs 12/03/2024 BMI 37.31 kg/m2 12/03/2024 Encounters Encounter Location Date Provider Diagnosis [facility] [address] [facility] [address] [facility] [address] [place] [id number] 12/03/2024 Holger Valadez Essential hypertensi on I10 Assessments Encounter Date Diagnosis (ICD Code) Assessment Notes Treatment Notes Treatment Clinical Notes Section Notes 12/03/2024 Essential hypertension (ICD-10 - I10) Plan Of Treatment Medication Medication Name Sig Start Date Stop Date Notes amLODIPine Besylate 10 MG 1 tablet Orall y Once a day; Duration: 30 day(s) 12/03/2024 Bisoprolol Fumarate 10 MG 2 tab(s) orally once a day Irbesartan 300 MG 1 tab(s) orally once a day Next Appt Details Follow Up: 2 or 3 Weeks, Jocy son: Provider Name:Holger gao, 11/18/2025 09:30:00 AM, [facility] [facility] [address] [facility], [address], [place], [phone], Progress Notes * Carlos YOUSSEFOB:1970 (55 yo F)Acc No.[id number]:12/03/2024 Progress Notes Patient: Nell PEREZ Provider: Isela Valadez M.D. :1970 A ge:54 Y S ex:Female Date:12/03/2024 Address:[address] [place] [address] [id number] Subjective: * Chief Complaints: * 1 . B/p has been high. * HPI: C ardiology: 54 year old female presents with c/o Chest Pain. c/o Short of Breath. c/o Palpitations. c/o Fatigue. c/o Blood Pressure Elevated P t complains of bp being 159-179/ 90's for the last week or so. Pt states she feels like she is racing to get things done . Pt states she just does not feel right or like herself. * ROS: D ERMATOLOGY: no R breanne. n o H lali. G ASTROENTEROLOGY: no N ausea. n o V omiting. U ROLOGY: no D ifficulty urinating. n o B lood in urine. * Medical History: H ypertension, Hyperthyroidism. * Surgical History: C -Section x 3 , Hysteroscopy- [facility] 06/20/2021. * Hospitalization/Major Diagno stic Procedure: D enies Past Hospitalization. * Family History: F ather: alive, CABG in his 70's, diagnosed with Heart Disease. M other: alive. * Social History: C URRENT TOBACCO USE S moking Status: Patient does NOT smoke. C affeine: no. Marital Status: . Past smoking status: no. Alcohol: No. * Medications: T aking Triamcinolone Acetonide 0.1 % Cream 1 osmar applied topically 3 times a day , Taking Vitamin D3 50 MCG (2000 UT) Tablet 1 tab(s) orally once a day , Taking Ferrous Sulfate 325 (65 Fe) MG Tablet 1 tab(s) orally 3 times a day , Taking Albuterol Sulfate HFA 108 (90 Base) MCG/ACT Aerosol Solution INHALE 1 PUFF BY MOUTH EVERY 4 HOURS NEEDED , Taking Bisoprolol Fumarate 10 MG Tablet 2 tab(s) orally once a day , Taking Irbesartan 300 MG Tablet 1 tab(s) orally once a day , Taking methIMAzole 5 MG Tablet 1 tab(s) orally once daily , Taking Famotidine 40 MG Tablet 1 tab(s) orally once a day (at bedtime) , Medication List reviewed and reconciled with the patient * Allergies: N .K.D.A. Objective: * Vitals: W t:249, Temp:97.9, BP:180/104, HR:76, Nurse:patricio, Ht: 68.5, BMI:37.31. * Examination: C ardiology: General Appearance: p leasant, NAD. H eart sounds: R RR, normal S1, S2. L ungs: c lear, no rales or wheezes. E xtremities: n o leg edema. Assessment: * Assessment: 1. E ssential hypertension - I10 (Primary) Plan: * Treatment: * Follow Up: 2 or 3 Weeks * Images: Billing Information: * Visit Code: 32763 Office Visit, Est Pt., Level 3. * Procedure Codes: * Electronic signature of Mirta Valadez MD on 08/08/2025 at 07:40 AM EDT Sign off status: Pending * Provider: Isela Valadez M.D. Date: 0 12/03/2024 Generated for Kaitlynn vazquez/David/Cb on: 1 07:40 AM EDT History and Physical Notes * HPI (History of Present Illness) Category Sub-Category Detail Notes Category Not es Cardiology Short of Breath Chest Pain Palpitations Fatigue Blood Pressure Elevated Pt complains of bp being 159-179/ 90's for the last week or so. Pt states she feels like she is racing to get things done . Pt states she just does not feel right or like herself Examination Category Sub-Category Detail Notes Category Not es Cardiology Lungs: clear, no rales or wheezes Heart sounds: RRR, normal S1, S2 Extremities: no leg edema General Appearance: pleasant, NAD
--- OUTSIDE RECORDS SUMMARY | 2024-12-20 12:45 | XMS_ITS ---
Author Organization [facility] Address [address] [place] [id number] Care Team Providers Care Motor Assembly Supervisor Name Role Phone Holger Valadez Primary Care Provider Allergies No Known Allergies REASON FOR VISIT 3 week f/u Medications Medication SIG (Take, Route, Frequency, Duration) Notes Start Date End Date Status hydroCHLOROthiazide 12.5 MG 1/2 tablet i n the morning Orally Once a day; Duration: 90 days 12/20/2024 Active Bisoprolol Fumarate 10 MG 2 tab(s) orall y once a day Active amLODIPine Besylate 5 MG 1 tablet Orally Once a day; Duration: 90 days 12/20/2024 Active Irbesartan 300 MG 1 tab(s) orally once a day Active Ferrous Sulfate 325 (65 Fe) MG 1 tab(s) orally 3 times a day; Duration: 30 day(s) Active Albuterol Sulfate HFA 108 (9 0 Base) MCG/ACT INHALE 1 PUFF BY MOUTH EVERY 4 HOURS NEEDED Active methIMAzole 5 MG 1 tab(s) orally once daily; Duration: 90 days Active Famotidine 40 MG 1 tab(s) orally once a day (at bedtime); Duration: 90 days Active Vitamin D3 50 MCG (2000 UT) 1 tab(s) ora lly once a day 11/09/2020 Active Triamcinolone Acetonide 0.1 % 1 osmar appl ied topically 3 times a day 05/01/2020 Active Vital Signs Blood pressure systolic 122 mm Hg 12/20/19 25 Blood pressure diastolic 72 mm Hg 025 Heart Rate 76 /min 12/20/2024 Height 68.5 in 12/20/2024 Weight 250 lbs 12/20/2024 BMI 37.46 kg/m2 12/20/2024 Encounters Encounter Location Date Provider Diagnosis [facility] [address] [facility] [address] [place] [phone] 12/20/2024 Holger Valadez Essential hypertensi on I10 Assessments Encounter Date Diagnosis (ICD Code) Assessment Notes Treatment Notes Treatment Clinical Notes Section Notes 12/20/2024 Essential hypertension (ICD-10 - I10) Plan Of Treatment Medication Medication Name Sig Start Date Stop Date Notes hydroCHLOROthiazide 12.5 MG 1/2 tablet i n the morning Orally Once a day; Duration: 90 days 12/20/2024 Bisoprolol Fumarate 10 MG 2 tab(s) orally once a day amLODIPine Besylate 10 MG 1 tablet Orally Once a day 12/03 amLODIPine Besylate 5 MG 1 tablet Orally Once a day; Duration: 90 days 12/20/2024 Irbesartan 300 MG 1 tab(s) orally once a day Next Appt Details Follow Up: 3 Weeks, Reason: Provider Name:Holger Coffman , 11/18/2025 09:30:00 AM, [address] [facility] [address] [facility], [address], [place], [phone], Progress Notes * Carlos YOUSSEFOB:1970 (55 yo F)Acc No.[id number]:12/20/2024 Progress Notes Patient: Nell PEREZ Provider: Isela Valadez M.D. :1970 A ge:54 Y S ex:Female Date:12/20/2024 Address:[address] [place] [address] [id number] Subjective: * Chief Complaints: * 1 . 3 week f/u. * HPI: C ardiology: 54 year old female presents with c/o Blood Pressure Elevated?Pt here for 3 week f/u. Pt was started on Amlodipine 10mg on 12/03/2024. Pt states that Amlodipine is causing swelling in her hands and feet, pt states swelling in feet gets so bad at times that she cannot bear weight on feet. * ROS: D ERMATOLOGY: no R breanne. n o H lali. G ASTROENTEROLOGY: no N ausea. n o V omiting. U ROLOGY: no D ifficulty urinating. n o B lood in urine. * Medical History: H ypertension, Hyperthyroidism. * Surgical History: C -Section x 3 , Hysteroscopy- [facility] 06/20/2021. * Hospitalization/Major Diagno stic Procedure: D [...] MOUTH EVERY 4 HOURS NEEDED , Taking methIMAzole 5 MG Tablet 1 tab(s) orally once daily , Taking Famotidine 40 MG Tablet 1 tab(s) orally once a day (at bedtime) , Taking Bisoprolol Fumarate 10 MG Tablet 2 tab(s) orally once a day , Taking Irbesartan 300 MG Tablet 1 tab(s) orally once a day , Taking amLODIPine Besylate 10 MG Tablet 1 tablet Orally Once a day , Medication List reviewed and reconciled with the patient * Allergies: N .K.D.A. Objective: * Vitals: W t:250, Temp:97.8, BP:122/72, HR:76, Nurse:patricio, Ht: 68.5, BMI:37.46. * Examination: C ardiology: General Appearance: p leasant, NAD. H EENT: u nremarkable. H eart sounds: R RR, normal S1, S2. L ungs: c lear, no rales or wheezes.?Extremities: n o leg edema. Assessment: * Assessment: 1. E ssential hypertension - I10 (Primary) Plan: * Treatment: * Procedure Codes: 3 074F SYST BP LT 130 MM HG, 3078F DIAST BP < 80 MM HG * Follow Up: 3 Weeks * Images: Billing Information: * Visit Code: 36884 Office Visit, Est Pt., Level 3. * Procedure Codes: 3074F SYST BP LT 130 MM HG. 3078F DIAST BP < 80 MM HG. * Electronic signature of Mirta Valadez MD on 08/08/2025 at 07:40 AM EDT Sign off status: Pending * Provider: Isela Valadez M.D. Date: 0 12/20/2024 Generated for Kaitlynn vazquez/David/Calebitting on: 1 07:40 AM EDT History and Physical Notes * HPI (History of Present Illness) Category Sub-Category Detail Notes Category Not es Cardiology Blood Pressure Elevated Pt here for 3 week f/u. Pt was started on Amlodipine 10mg on 12/03/2024. Pt states that Amlodipine is causing swelling in her hands and feet, pt states swelling in feet gets so bad at times that she cannot bear weight on feet Examination Category Sub-Category Detail Notes Category Not es Cardiology Lungs: clear, no rales or wheezes HEENT: unremarkable Heart sounds: RRR, normal S1, S2 Extremities: no leg edema General Appearance: pleasant, NAD
--- OUTSIDE RECORDS SUMMARY | 2025-01-10 13:00 | XMS_ITS ---
Author Organization [facility] Address [address] [facility] [address] [place] [id number] Care Team Providers Care Screedman/Laborer Name Role Phone Fahad Valadezian Primary Care Provider Allergies No Known Allergies Results Component Value Reference Range Notes P-Basic Metabolic Panel (BMP ) Reviewed date:01/12/2025 12:38:18 PM Interpretation:gluc 115, bun 23 Performing Lab: Notes/Report: CLIA: [id number] Robby Lugo MD, Digital Cartographic Technician [address] [place] [address] , [address], [place] [address] Test performed by [employer], [facility] Sodium 143 135-145 mmol/L Potassium 5.0 3.5-5.3 mmol/L Chloride 108 97-108 mmol/L CO2 26 22-32 mmol/L Glucose 115 65-99 mg/dL BUN 23 6-20 mg/dL Creatinine 0.88 0.50-1.00 mg/dL Calcium 9.5 8.6-10.4 mg/dL eGFR by Creatinine 79 >59 mL/min/1.73m2 X ray : Spine, lumbosacral Reviewed date:02/04/2025 12:35:08 PM Interpretation: Performing Lab: Notes/Report: REASON FOR VISIT 3 week f/u Medications Medication SIG (Take, Route, Frequency, Duration) Notes Start Date End Date Status Albuterol Sulfate HFA 108 (9 0 Base) MCG/ACT INHALE 1 PUFF BY MOUTH EVERY 4 HOURS NEEDED Active methIMAzole 5 MG 1 tab(s) orally once daily; Duration: 90 days Active Famotidine 40 MG 1 tab(s) orally once a day (at bedtime); Duration: 90 days Active Vitamin D3 50 MCG (2000 UT) 1 tab(s) ora lly once a day 11/09/2020 Active Ferrous Sulfate 325 (65 Fe) MG 1 tab(s) orally 3 times a day; Duration: 30 day(s) Active amLODIPine Besylate 5 MG 1 tablet Orally Once a day 12/20/2024 Active hydroCHLOROthiazide 12.5 MG 1/2 tablet i n the morning Orally Once a day 12/20/2024 Active Bisoprolol Fumarate 10 MG 2 tab(s) orall y once a day Active Irbesartan 300 MG 1 tab(s) orally once a day Active Triamcinolone Acetonide 0.1 % 1 osmar appl ied topically 3 times a day 05/01/2020 Active Vital Signs Blood pressure systolic 122 mm Hg 01/11/20 25 Blood pressure diastolic 80 mm Hg 025 Heart Rate 62 /min 01/10/2025 Height 68.5 in 01/10/2025 Weight 246.8 lbs 01/10/2025 BMI 36.98 kg/m2 01/10/2025 Encounters Encounter Location Date Provider Diagnosis [facility] [address] [facility] [address] [place], [place] [id number] 01/10/2025 Holger Valadez Essential hypertensi on I10 ; Renal insufficiency N28.9 ; Pain in right leg M79.604 and Acute bilateral low back pain, unspecified whether sciatica present M54.50 Assessments Encounter Date Diagnosis (ICD Code) Assessment Notes Treatment Notes Treatment Clinical Notes Section Notes 01/10/2025 Essential hypertension (ICD-10 - I10) 01/10/2025 Renal insufficiency (ICD-10 - N28.9) 01/10/2025 Pain in right leg (ICD-10 - M79.604) 01/10/2025 Acute bilateral low back pain, unspecified whether sciatica present (ICD-10 - M54.50) Plan Of Treatment Medication Medication Name Sig Start Date Stop Date Notes amLODIPine Besylate 5 MG 1 tablet Orally Once a day 2024 hydroCHLOROthiazide 12.5 MG 1/2 tablet i n the morning Orally Once a day 12/20/2024 Bisoprolol Fumarate 10 MG 2 tab(s) orally once a day Irbesartan 300 MG 1 tab(s) orally once a day Next Appt Details Follow Up: 4 Months, Reason: Provider Name:Holger Coffman ry, 11/18/2025 09:30:00 AM, [address], [address], [place], [id number], Progress Notes * Carlos YOUSSEFOB:1970 (55 yo F)Acc No.[id number]:01/10/2025 Patient: Nell PEREZ Provider: Isela Valadez M.D. :1970 A ge:54 Y S ex:Female Date:01/10/2025 Address:[address] [place] [address] [id number] Subjective: * Chief Complaints: * 1 . 3 week f/u. * HPI: C ardiology: 54 year old female presents with c/o Blood Pressure Elevated?Pt here for 3 week f/u. Pt's Amlodipine decreased to 5mg and pt was started on HCTZ 12.5 mg on 12/20/2024. Pt states she did check her bp at home for one week after starting HCTZ and it was perfect . L eg: c/o Leg pain P t complains of rt leg pain for a while . Pt states pain started in r[place] and feels like its making its way up . Pt states pain has w orsened and been more consistent o ashley the last 3 weeks or so . * ROS: D ERMATOLOGY: no R breanne. n o H lali. G ASTROENTEROLOGY: no N ausea. n o V omiting. U ROLOGY: no D ifficulty urinating. n o B lood in urine. * Medical History: H ypertension, Hyperthyroidism, Vitamin D deficiency, Iron deficiency anemia. * Surgical History: C -Section x 3 , Hysteroscopy- [facility] 06/20/2021. * Family History: F ather: alive, CABG [...] once a day (at bedtime) , Taking amLODIPine Besylate 5 MG Tablet 1 tablet Orally Once a day , Taking hydroCHLOROthiazide 12.5 MG Tablet 1/2 tablet in the morning Orally Once a day , Taking Bisoprolol Fumarate 10 MG Tablet 2 tab(s) orally once a day , Taking Irbesartan 300 MG Tablet 1 tab(s) orally once a day , Medication List reviewed and reconciled with the patient * Allergies: N .K.D.A. Objective: * Vitals: W t:246.8, Temp:97.9, BP:122/80, HR:62, Nurse:patricio, Ht: 68.5, BMI:36.98. * Examination: C ardiology: General Appearance: p leasant, NAD. H eart sounds: R RR, normal S1, S2. L ungs: c lear, no rales or wheezes. E xtremities: n o leg edema. L ower back: Palpation: n o vertebral spine tenderness, no paraspinal spasm, no tenderness on SI joints. S traight leg raising test: n egative bilaterally. G ait: n ormal. Assessment: * Assessment: 1. E ssential hypertension - I10 (Primary) 2 . R enal insufficiency - N28.9? 3. P ain in right leg - M79.604 4 . A cute bilateral low back pain, unspecified whether sciatica present - M54.50 Plan: * Treatment: Value Reference Range B UN 23 H 6-20 - mg/dL * C alcium 9.5 8.6-10.4 - mg/dL * C hloride 108 97-108 - mmol/L * C O2 26 22-32 - mmol/L * C reatinine 0.88 0.50-1.00 - mg/dL * G lucose 115 H 65-99 - mg/dL * P otassium 5.0 3.5-5.3 - mmol/L * S odium 143 135-145 - mmol/L * e GFR by Creatinine 79 >59 - mL/min/1.73m2 * Shanice Ford 01/12/2025 12:3 8:10 PM > See phone encounter 2.?Renal insufficiency?LAB: P-Basic Metabolic Panel (BMP) (Collection Date & Time - 01/10/2025 04:30 PM)?gluc 115, bun 23* Value Reference Range B UN 23 H 6-20 - mg/dL * C alcium 9.5 8.6-10.4 - mg/dL * C hloride 108 97-108 - mmol/L * C O2 26 22-32 - mmol/L * C reatinine 0.88 0.50-1.00 - mg/dL * G lucose 115 H 65-99 - mg/dL * P otassium 5.0 3.5-5.3 - mmol/L * S odium 143 135-145 - mmol/L * e GFR by Creatinine 79 >59 - mL/min/1.73m2 * Shanice Ford 01/12/2025 12:3 8:10 PM > See phone encounter 3.?Pain in right leg?Imaging: X ray : Spine, lumbosacral (Performed Date - 01/22/2025)* Tory Jaime 02/04/2025 12: 35:03 PM > see phone encounter 4.?Acute bilateral low back pain, unspecified whether sciatica present?Imaging: X ray : Spine, lumbosacral (Performed Date - 01/22/2025)* Tory Jaime 02/04/2025 12: 35:03 PM > see phone encounter * Procedure Codes: 3 074F SYST BP LT 130 MM HG, 3079F DIAST BP 80-89 MM HG * Follow Up: 4 Months * Images: Billing Information: * Visit Code: 27163 Office Visit, Est Pt., Level 4. * Procedure Codes: 3074F SYST BP LT 130 MM HG. 3079F DIAST BP 80-89 MM HG. * Electronic signature of Mirta Valadez MD on 08/08/2025 at 07:40 AM EDT Sign off status: Pending * Provider: Isela Valadez M.D. Date: 0 01/10/2025 Generated for Kaitlynn vazquez/David/Cb on: 1 07:40 AM EDT History and Physical Notes * HPI (History of Present Illness) Category Sub-Category Detail Notes Category Not es Cardiology Blood Pressure Elevated Pt here for 3 week f/u. Pt's Amlodipine decreased to 5mg and pt was started on HCTZ 12.5 mg on 12/20/2024. Pt states she did check her bp at home for one week after starting HCTZ and it was perfect Leg Leg pain Pt complains of rt leg pain for a while . Pt states pain started in [place] and feels like its making its way up . Pt states pain has worsened and been more consistent over the last 3 weeks or so Examination Category Sub-Category Detail Notes Category Not es Lower back Straight leg raising test: negative bilat erally Gait: normal Palpation: no vertebral spine t enderness, no paraspinal spasm, no tenderness on SI joints Cardiology Lungs: clear, no rales or wheezes Heart sounds: RRR, normal S1, S2 Extremities: no leg edema General Appearance: pleasant, NAD
--- OUTSIDE RECORDS SUMMARY | 2025-05-20 05:00 | XMS_ITS ---
Author Organization [facility] Address [address] [facility] [address] [place] [id number] Care Team Providers Care Ropeman Name Role Phone RoryFahadHolger Primary Care Provider [phone] Allergies No Known Allergies Results Component Value Reference Range Notes CBC Venipuncture (in house) Reviewed date:05/20/2025 02:56:32 PM Interpretation: Performing Lab: Notes/Report: wbc 6.4 3.5 - 10 lymph 30.3% 15 - 50 mid 7.0% 2 - 15 gran 62.7% 35 - 80 rbc 5.06 3.5 - 5.5 hgb 15.2 11.5 - 16.5 hct 45.6 35 - 55 mcv 90.1 75 - 100 mch 30.1 25 - 35 mchc 33.4 31 - 38 platlet 376 100 - 400 Cologuard Reviewed date:07/11/2025 05:34:40 PM Interpretation:Negative, Repeat in 3 Years Performing Lab: Notes/Report: Negative, Repeat in 3 Years P-Basic Metabolic Panel (BMP ) Reviewed date:05/24/2025 12:51:37 PM Interpretation:Normal Performing Lab: Notes/Report: Test performed by [employer], [email or web address] [address] [place] [address] , [address], [place] [address] Robby Lugo MD, Machine Learning Intern CLIA: [id number] Sodium 141 135-145 mmol/L Potassium 4.4 3.5-5.3 mmol/L Chloride 105 97-108 mmol/L CO2 25 20-32 mmol/L Glucose 90 65-99 mg/dL BUN 17 6-20 mg/dL Creatinine 0.88 0.50-1.00 mg/dL Calcium 9.9 8.6-10.4 mg/dL eGFR by Creatinine 78 >59 mL/min/1.73m2 P-T4 Free (thyroxine) Reviewed date:05/24/2025 12:51:55 PM Interpretation:Normal Performing Lab: Notes/Report: Test performed by [employer] [address] [place] [address] , [facility], [place] [address] Robby Lugo MD, Machine Learning Intern CLIA: [id number] Thyroxine Free (free T4) 1.30 0.86-1.76 ng/dL P-Iron Reviewed date:05/24/2025 12:52:13 PM Interpretation:Normal Performing Lab: Notes/Report: Test performed by [employer] [address] , [place] [address] Robby Lugo MD, Machine Learning Intern CLIA: [id number] Iron 136 37-145 ug/dL P-TSH Reviewed date:05/24/2025 12:52:25 PM Interpretation:Normal Performing Lab: Notes/Report: Test performed by [employer] [address] [place] [address] , [facility], [place] [address] Robby Lugo MD, Machine Learning Intern CLIA: [id number] TSH 3.18 0.43-5.25 mU/L P-Vitamin D 25-Hydroxy Reviewed date:05/24/2025 12:52:35 PM Interpretation:Normal Performing Lab: Notes/Report: Test performed by [employer] [address] [place] [address] , [place] [address] Robby Lugo MD, Machine Learning Intern CLIA: [id number] Vitamin D 25-Hydroxy 67.8 30.0-100.0 ng/mL Interpretation of Vitamin D 25 OH: < 20 ng/mL - Deficiency 20 - 29 ng/mL - Insufficiency 30 - 100 ng/mL - Sufficiency > 100 ng/mL - Super-therapeutic- toxicity may occur above this level. Clinical correlation required. REASON FOR VISIT 6 month Medications Medication SIG (Take, Route, Frequency, Duration) Notes Start Date End Date Status Triamcinolone Acetonide 0.1 % 1 osmar appl ied topically 3 times a day 05/01/2020 Active Famotidine 40 MG 1 tab(s) orally once a day (at bedtime); Duration: 90 days Active Vitamin D3 50 MCG (2000 UT) 1 tab(s) ora lly once a day 11/09/2020 Active Ferrous Sulfate 325 (65 Fe) MG 1 tab(s) orally daily; Duration: 90 days Active Albuterol Sulfate HFA 108 (9 0 Base) MCG/ACT INHALE 1 PUFF BY MOUTH EVERY 4 HOURS NEEDED Active methIMAzole 5 MG 1 tab(s) orally once daily; Duration: 90 days Active hydroCHLOROthiazide 12.5 MG 1/2 tablet i n the morning Orally Once a day; Duration: 90 days 12/20/2024 Active amLODIPine Besylate 5 MG 1 tablet Orally Once a day; Duration: 90 days 12/20/2024 Active Irbesartan 300 MG 1 tab(s) orally once a day; Duration: 90 days Active Bisoprolol Fumarate 10 MG 2 tab(s) orall y once a day; Duration: 90 days Active Vital Signs Blood pressure systolic 122 mm Hg 05/20/20 25 Blood pressure diastolic 80 mm Hg 025 Heart Rate 70 /min 05/20/2025 Height 68.5 in 05/20/2025 Weight 240 lbs 05/20/2025 BMI 35.96 kg/m2 05/20/2025 Encounters Encounter Location Date Provider Diagnosis [facility] [address] [facility] [address] [id number] 05/20/2025 Holger Valadez Essential hypertensi on I10 ; Hyperthyroidism E05.90 ; Vitamin D deficiency E55.9 ; Iron deficiency anemia due to chronic blood loss D50.0 and Colon cancer screening Z12.11 Assessments Encounter Date Diagnosis (ICD Code) Assessment Notes Treatment Notes Treatment Clinical Notes Section Notes 05/20/2025 Essential hypertension (ICD-10 - I10) 05/20/2025 Hyperthyroidism (ICD-10 - E05.90) 05/20/2025 Vitamin D deficiency (ICD-10 - E55.9) 05/20/2025 Iron deficiency anemia due to chronic blood loss (ICD-10 - D50.0) 05/20/2025 Colon cancer screening (ICD-10 - Z12.11) Plan Of Treatment Medication Medication Name Sig Start Date Stop Date Notes Famotidine 40 MG 1 tab(s) orally once a day (at bedtime); Duration: 90 days Ferrous Sulfate 325 (65 Fe) MG 1 tab(s) orally daily; Duration: 90 days methIMAzole 5 MG 1 tab(s) orally once daily; Duration: 90 days hydroCHLOROthiazide 12.5 MG 1/2 tablet i n the morning Orally Once a day; Duration: 90 days 12/20/2024 amLODIPine Besylate 5 MG 1 tablet Orally Once a day; Duration: 90 days 12/20/2024 Irbesartan 300 MG 1 tab(s) orally once a day; Duration: 90 days Bisoprolol Fumarate 10 MG 2 tab(s) orall y once a day; Duration: 90 days Next Appt Details Follow Up: 6 Months, Reason: Provider Name:Holger Coffman , 11/18/2025 09:30:00 AM, [address] [facility] [address] [facility], [address] , [place], [place], [id number], Progress Notes * Ang YOUSSEFJuan ROB:1970 (55 yo F)Acc No.[id number]:05/20/2025 Progress Notes Patient: Nell PEREZ Provider: Isela Valadez M.D. :1970 A ge:55 Y S ex:Female Date:05/20/2025 Address:[address] [place] [address] [place], [id number] Subjective: * Chief Complaints: * 1 . 6 month. * HPI: C ardiology: 55 year old female presents with c/o Blood Pressure Elevated?Pt here to f/u on hypertension. Pt states she is doing well and does not have any concerns. Pt is fasting today. E ndocrinology: c/o Hypothyroidism P t here to f/u. * ROS: D ERMATOLOGY: no R breanne. n o H lali. G ASTROENTEROLOGY: no N ausea. n o V omiting. U ROLOGY: no D ifficulty urinating. n o B lood in urine. * Medical History: H ypertension, Hyperthyroidism, Vitamin D deficiency, Iron deficiency anemia. * Surgical History: C -Section x 3 , Hysteroscopy- [facility] 06/20/2021. * Hospitalization/Major Diagno stic Procedure: D enies Past Hospitalization. * Family History: F ather: alive, CABG in his 70's, diagnosed with Heart Disease. M other: alive. * Social History: C URRENT TOBACCO USE: No . C affeine: no. Marital Status: . Past [...] Allergies: N .K.D.A. Objective: * Vitals: W t: 240, Temp: 97.9, BP: 122/80, HR: 70, Nurse: patricio, Ht: 68.5, BMI:35.96. * Examination: C ardiology: General Appearance: p leasant, NAD. H eart sounds: R RR, normal S1, S2. L ungs: c lear, no rales or wheezes. E xtremities: n o leg edema. Assessment: * Assessment: 1. E ssential hypertension - I10 (Primary) 2 . H yperthyroidism - E05.90? 3. V itamin D deficiency - E55.9 4 . I melvi deficiency anemia due to chronic blood loss - D50.0 5 . C olon cancer screening - Z12.11 ? Plan: * Treatment: Value Reference Range B UN 17 6-20 - mg/dL * C alcium 9.9 8.6-10.4 - mg/dL * C hloride 105 97-108 - mmol/L * C O2 25 20-32 - mmol/L * C reatinine 0.88 0.50-1.00 - mg/dL * G lucose 90 65-99 - mg/dL * P otassium 4.4 3.5-5.3 - mmol/L * S odium 141 135-145 - mmol/L * e GFR by Creatinine 78 >59 - mL/min/1.73m2 * Nara Santoyoira 05/24/2025 12:22: 24 PM EDT > LM for pt to return [facility] 05/24/2025 12:51:32 PM EDT >pt informed 2.?Hyperthyroidism? Refill methIMAzole Tablet, 5 MG, 1 tab(s), orally, once daily, 90 days, 90, Refills 1.?LAB: P-T4 Free (thyroxine) (Collection Date & Time - 05/20/2025 08:37 AM)? Normal* Value Reference Range T hyroxine Free (free T4) 1.30 0.86-1.76 - ng/d L * Nara Santoyoira 05/24/2025 12:22: 24 PM EDT > LM for pt to return [facility] 05/24/2025 12:51:50 PM EDT >pt informed ?LAB: P-TSH (Collection Date & Time - 05/20/2025 08:37 AM)?Normal* Value Reference Range T SH 3.18 0.43-5.25 - mU/L * Nara Santoyoira 05/24/2025 12:22: 24 PM EDT > LM for pt to return [facility] 05/24/2025 12:52:20 PM EDT >pt informed 3.?Vitamin D deficiency?LAB: P-Vitamin D 25-Hydroxy (Collection Date & Time - 05/20/2025 08:37 AM)? Normal* Value Reference Range V itamin D 25-Hydroxy 67.8 30.0-100.0 - ng/mL * Nara Santoyoira 05/24/2025 12:22: 24 PM EDT > LM for pt to return Lily Garcia 05/24/2025 12:52:31 PM EDT >pt informed 4.?Iron deficiency anemia due to chronic blood loss? Refill Ferrous Sulfate Tablet, 325 (65 Fe) MG, 1 tab(s), orally, daily, 90 days, 90 Tablet, Refills1.?LAB: P-Iron (Collection Date & Time - 05/20/2025 08:37 AM)?Normal* Value Reference Range I melvi 136 37-145 - ug/dL * Nara Santoyoira 05/24/2025 12:22: 24 PM EDT > LM for pt to return Lily Garcia 05/24/2025 12:52:02 PM EDT >pt informed ?LAB: CBC Venipuncture (in house) (Collection Date & Time - 05/20/2025)* Value Reference Range w bc 6.4 3.5 - 10 * l ymph 30.3% 15 - 50 * m id 7.0% 2 - 15 * g ran 62.7% 35 - 80 * r bc 5.06 3.5 - 5.5 * h gb 15.2 11.5 - 16.5 * h ct 45.6 35 - 55 * m cv 90.1 75 - 100 * m ch 30.1 25 - 35 * m chc 33.4 31 - 38 * p latlet 376 100 - 400 * Nara Santoyoira 05/20/2025 10:58: 51 AM EDT >Holger Valadez 05/20/2025 02:56:26 PM EDT > 5.?Colon cancer screening?LAB: Cologuard (Collection Date & Time - 07/07/2025)?Negative, Repeat in 3 Years* Tory Jaime 06/22/2025 02: 56:25 PM EDT > order Steffany Lion 07/11/2025 05:34:34 PM EDT > Pt notified 6.?Others? Refill Famotidine Tablet, 40 MG, 1 tab(s), orally, once a day (at bedtime), 90 days, 90, Refills 1. ? * Procedure Codes: 8 5025 CBC WITH AUTO DIFF, 1036F TOBACCO NON-USER, 3074F SYST BP LT 130 MM HG, 3079F DIAST BP 80-89 MM HG * Follow Up: 6 Months * Images: Billing Information: * Visit Code: 24444 Office Visit, Est Pt., Level 4. * Procedure Codes: 04793 CBC WITH AUTO DIFF. 1036F TOBACCO NON-USER. 3074F SYST BP LT 130 MM HG. 3079F DIAST BP 80-89 MM HG. * Electronic signature of Mirta Valadez MD on 08/08/2025 at 07:41 AM EDT Sign off status: Pending * Provider: Isela Valadez M.D. Date: 0 05/20/2025 Generated for Kaitlynn vazquez/David/Calebitting on: 1 07:41 AM EDT History and Physical Notes * HPI (History of Present Illness) Category Sub-Category Detail Notes Category Not es Endocrinology Hypothyroidism Pt here to f/u Cardiology Blood Pressure Elevated Pt here to f/u on hypertension. Pt states she is doing well and does not have any concerns. Pt is fasting today Examination Category Sub-Category Detail Notes Category Not es Cardiology Lungs: clear, no rales or wheezes Heart sounds: RRR, normal S1, S2 Extremities: no leg edema General Appearance: pleasant, NAD
--- NOTE | 2025-08-08 07:39 | MM_ITS ---
PROCEDURE INFORMATION: Exam: MG Bilateral Screening 3D Mammography Exam date and time: 08/08/2025 8:04 AM Age: 55 years old Clinical indication: Screening examination TECHNIQUE: Imaging protocol: Bilateral Screening tomosynthesis and 2D mammography including computer-aided detection (CAD) when performed. COMPARISON: 1. MG MM DIG MAMM DX UNILAT RT CAD 06/13/2023 1:35 PM 2. MG MM DIG SCREENING MAMM BI W/CAD 05/23/2023 10:48 AM FINDINGS: MAMMOGRAPHY: Breast composition: There are scattered areas of fibroglandular density. Mass: None. Architectural distortion: None. Calcifications: No suspicious calcifications. Asymmetric density: None. Skin thickening: None. Axillary adenopathy: None. IMPRESSION: No mammographic evidence of malignancy. Annual screening is recommended unless otherwise clinically indicated. ASSESSMENT: BI-RADS Category 1: Negative.
--- OUTSIDE RECORDS SUMMARY | 2025-08-08 07:41 | XMS_ITS | Patient Health Record ---
Author Organization [facility] Address [address] [facility] [address] [place] [id number] Care Team Providers Care Shipfitter Name Role Phone Fahad Valadezian Primary Care Provider [phone] Allergies No Known Allergies Results Component Value Reference Range Notes P-Basic Metabolic Panel (BMP ) Reviewed date:01/12/2025 12:38:18 PM Interpretation:gluc 115, bun 23 Performing Lab: Notes/Report: Test performed by [facility] [employer] [address] , [address], [place] [address] Robby Lugo MD, Drywall Finisher Foreman CLIA: [id number] Sodium 143 135-145 mmol/L Potassium 5.0 3.5-5.3 mmol/L Chloride 108 97-108 mmol/L CO2 26 22-32 mmol/L Glucose 115 65-99 mg/dL BUN 23 6-20 mg/dL Creatinine 0.88 0.50-1.00 mg/dL Calcium 9.5 8.6-10.4 mg/dL eGFR by Creatinine 79 >59 mL/min/1.73m2 X ray : Spine, lumbosacral Reviewed date:02/04/2025 12:35:08 PM Interpretation: Performing Lab: Notes/Report: Cologuard Reviewed date:07/11/2025 05:34:40 PM Interpretation:Negative, Repeat in 3 Years Performing Lab: Notes/Report: Negative, Repeat in 3 Years P-T4 Free (thyroxine) Reviewed date:05/24/2025 12:51:55 PM Interpretation:Normal Performing Lab: Notes/Report: Test performed by [facility] [address] [place], [place] [address] [address] , [place] [address] Robby Lugo MD, Drywall Finisher Foreman CLIA: [id number] Thyroxine Free (free T4) 1.30 0.86-1.76 ng/dL P-Vitamin D 25-Hydroxy Reviewed date:05/24/2025 12:52:35 PM Interpretation:Normal Performing Lab: Notes/Report: Test performed by [facility] [address] [place] [address] , [place] [address] Robby Lugo MD, Drywall Finisher Foreman CLIA: [id number] Vitamin D 25-Hydroxy 67.8 30.0-100.0 ng/mL Interpretation of Vitamin D 25 OH: < 20 ng/mL - Deficiency 20 - 29 ng/mL - Insufficiency 30 - 100 ng/mL - Sufficiency > 100 ng/mL - Super-therapeutic- toxicity may occur above this level. Clinical correlation required. P-Basic Metabolic Panel (BMP ) Reviewed date:11/22/2024 08:46:14 AM Interpretation: Normal Performing Lab: Notes/Report: CLIA: [id number] Robby Lugo MD, Drywall Finisher Foreman [address] [place] [address] , [place] [address] Test performed by [facility] Sodium 141 135-145 mmol/L Potassium 4.4 3.5-5.3 mmol/L Chloride 105 97-108 mmol/L CO2 25 22-32 mmol/L Glucose 97 65-99 mg/dL BUN 15 6-20 mg/dL Creatinine 0.83 0.50-1.00 mg/dL Calcium 9.6 8.6-10.4 mg/dL eGFR by Creatinine 84 >59 mL/min/1.73m2 P-TSH Reviewed date:05/24/2025 12:52:25 PM Interpretation:Normal Performing Lab: Notes/Report: Test performed by [facility] [address] [place] [address] , [place] [address] Robby Lugo MD, Drywall Finisher Foreman CLIA: [id number] TSH 3.18 0.43-5.25 mU/L P-Iron Reviewed date:05/24/2025 12:52:13 PM Interpretation:Normal Performing Lab: Notes/Report: Test performed by [facility] [address] [place] [address] , [place] [address] Robby Lugo MD, Drywall Finisher Foreman CLIA: [id number] Iron 136 37-145 ug/dL P-Basic Metabolic Panel (BMP ) Reviewed date:05/24/2025 12:51:37 PM Interpretation:Normal Performing Lab: Notes/Report: Test performed by [facility] [address] [place] [address] , [address], [place] [address] Robby Lugo MD, Drywall Finisher Foreman CLIA: [id number] Sodium 141 135-145 mmol/L Potassium 4.4 3.5-5.3 mmol/L Chloride 105 97-108 mmol/L CO2 25 20-32 mmol/L Glucose 90 65-99 mg/dL BUN 17 6-20 mg/dL Creatinine 0.88 0.50-1.00 mg/dL Calcium 9.9 8.6-10.4 mg/dL eGFR by Creatinine 78 >59 mL/min/1.73m2 CBC Venipuncture (in house) Reviewed date:05/20/2025 02:56:32 [...] - 38 platlet 376 100 - 400 P-TSH Reviewed date:11/22/2024 08:46:14 AM Interpretation: Normal Performing Lab: Notes/Report: Test performed by [facility] [address] [place] [address] , [address], [place] [address] Robby Lugo MD, Drywall Finisher Foreman CLIA: [id number] TSH 5.23 0.43-5.25 mU/L P-Vitamin D 25-Hydroxy Reviewed date:11/22/2024 08:46:14 AM Interpretation:37 Performing Lab: Notes/Report: Test performed by [facility] [address] [place] [address] , [address], [place] [address] Robby Lugo MD, Drywall Finisher Foreman CLIA: [id number] Vitamin D 25-Hydroxy 37.0 30.0-100.0 ng/mL Interpretation of Vitamin D 25 OH: < 20 ng/mL - Deficiency 20 - 29 ng/mL - Insufficiency 30 - 100 ng/mL - Sufficiency > 100 ng/mL - Super-therapeutic- toxicity may occur above this level. Clinical correlation required. P-Microalbumin/Creatinine, R andom Urine Sample Reviewed date:11/22/2024 08:46:14 AM Interpretation: Normal Performing Lab: Notes/Report: Test performed by [facility] [address] [place] [address] , [facility] [address], [place] [address] Robby Lugo MD, Drywall Finisher Foreman CLIA: [id number] Albumin/Creatinine Ratio, Urine 17 0-30 ug/m g Microalbumin, Urine, Random 4.3 Creatinine, Urine 253.5 P-Lipid Panel Reviewed date:11/22/2024 08:46:14 AM Interpretation:non-hdl 139 Performing Lab: Notes/Report: Test performed by [facility] [address] [place], [place] [address] [address] , [address], [place] [address] Robby Lugo MD, Drywall Finisher Foreman CLIA: [id number] Cholesterol 180 <200 mg/dL Triglycerides 125 <150 mg/dL HDL Cholesterol 41 >39 mg/dL Cholesterol / HDL Ratio 4.39 0.00-4.44 Ratio Non-HDL Cholesterol 139 <130 mg/dL LDL Cholesterol (Calculation) 114 <130 mg/dL LDL Cholesterol Levels* Less than 100 mg/dL Optimal 100 to 129 mg/dL Near Optimal/ Above Optimal 130 to 159 mg/dL Borderline High 160 to 189 mg/dL High 190 mg/dL and above Very High * Categories as recommended by the 2004 ATPIII guidelines LDL/HDL Ratio 2.8 <3.3 Ratio LDL Cholesterol Patient History Test Date: 11/14/2023 LDL Results: 85 Units: mg/dL % Change: - Test Date: 11/19/2024 LDL Results: 114 Units: mg/dL % Change: +34% P-T4 Free (thyroxine) Reviewed date:11/22/2024 08:46:14 AM Interpretation: Normal Performing Lab: Notes/Report: Test performed by [employer] [address] [place] [address] , [place] [address] Robby Lugo MD, Drywall Finisher Foreman CLIA: [id number] Thyroxine Free (free T4) 1.19 0.86-1.76 ng/dL Reason For Referral No Information Medications Medication SIG (Take, Route, Frequency, Duration) Notes Start Date End Date Status methIMAzole 5 MG 1 tab(s) orally once daily; Duration: 90 days Active Triamcinolone Acetonide 0.1 % 1 osmar appl ied topically 3 times a day 05/01/2020 Active Famotidine 40 MG 1 tab(s) orally once a day (at bedtime); Duration: 90 days Active Vitamin D3 50 MCG (1999 UT) 1 tab(s) ora lly once a day 11/09/2020 Active hydroCHLOROthiazide 12.5 MG 1/2 tablet i n the morning Orally Once a day; Duration: 90 days 12/20/2024 Active amLODIPine Besylate 5 MG 1 tablet Orally Once a day; Duration: 90 days 12/20/2024 Active Ferrous Sulfate 325 (65 Fe) MG 1 tab(s) orally daily; Duration: 90 days Active Albuterol Sulfate HFA 108 (9 0 Base) MCG/ACT INHALE 1 PUFF BY MOUTH EVERY 4 HOURS NEEDED Active Irbesartan 300 MG 1 tab(s) orally once a day; Duration: 90 days Active Bisoprolol Fumarate 10 MG 2 tab(s) orall y once a day; Duration: 90 days Active Immunizations Vaccine Route Administration Date Status Comme nts Flublok IM Intramuscular 07/03/2021 Administered DT, 7 YEARS OR OLDER Unknown 05/03/1998 Administered COVID 19 Moderna Unknown 01/30/2021 Administered COVID 19 Moderna Unknown 03/02/2021 Administered Problems Problem Type SNOMED Code ICD Code Onset Dates Problem Status W/U Status Risk Notes Problem Vitamin D deficiency (38514930) Vitamin D deficiency (E55.9) Active confirmed Problem Essential hypertension (65303548) Essential hypertension (I10) Active confirmed Problem Hyperthyroidism (69428240) Hyperthyroidism (E05.90) Active confirmed Problem Skin sensation disturbance (67047155) Paresthesia of left arm (R20.2) Active confirmed Problem Intermenstrual bleeding - irregular (78109444) Menorrhagia with irregular cycle (N92.1) Active confirmed Problem Iron deficiency anemia due to chronic blood loss (556857272) Iron deficiency anemia due to chronic blood loss (D50.0) Active confirmed Problem Obesity (348897303) Non morbid obesity (E66.9) Active confirmed Vital Signs Heart Rate 70 /min 05/20/2025 Blood pressure diastolic 80 mm Hg 05/20/2025 Height 68.5 in 05/20/2025 Blood pressure systolic 122 mm Hg 05/20/2025 Weight 240 lbs 05/20/2025 BMI 35.96 kg/m2 05/20/2025 Encounters Encounter Location Date Provider Diagnosis [facility] [address] [place], [place] [id number] 11/19/2024 Holger Nowata Essential hypertensi on I10 ; Hyperthyroidism E05.90 ; Vitamin D deficiency E55.9 and Non morbid obesity E66.9 [facility] [address] [facility] [address] [place], [place] [id number] 12/03/2024 Holger Nowata Essential hypertensi on I10 [facility] [address] [place], [place] [id number] 12/20/2024 Holger Nowata Essential hypertensi on I10 [facility] [address] [place] [id number] 01/10/2025 Holger Nowata Essential hypertensi on I10 ; Renal insufficiency N28.9 ; Pain in right leg M79.604 and Acute bilateral low back pain, unspecified whether sciatica present M54.50 [facility] [address] [place], [place] [id number] 05/20/2025 Holger Nowata Essential hypertensi on I10 ; Hyperthyroidism E05.90 ; Vitamin D deficiency E55.9 ; Iron deficiency anemia due to chronic blood loss D50.0 and Colon cancer screening Z12.11 [facility] [address] [place], [place] [id number] 11/22/2024 Holger Nowata [facility] [address] [place], [place] [id number] 01/12/2025 Holger Nowata [facility] [address] [facility] [address] [place], [place] [id number] 02/04/2025 Holger Nowata [facility] [address] [facility] [address] [place], [place] [id number] 05/31/2025 Holger Nowata Encounter for screen ing for malignant neoplasm of breast Z12.31 Assessments Encounter Date Diagnosis (ICD Code) Assessment Notes Treatment Notes Treatment Clinical Notes Section Notes 05/31/2025 Encounter for screening for malignant neoplasm of breast (ICD-10 - Z12.31) 01/10/2025 Essential hypertension (ICD-10 - I10) 01/10/2025 Renal insufficiency (ICD-10 - N28.9) 11/19/2024 Essential hypertension (ICD-10 - I10) 11/19/2024 Hyperthyroidism (ICD-10 - E05.90) 05/20/2025 Essential hypertension (ICD-10 - I10) 05/20/2025 Hyperthyroidism (ICD-10 - E05.90) 12/20/2024 Essential hypertension (ICD-10 - I10) 12/03/2024 Essential hypertension (ICD-10 - I10) 05/20/2025 Vitamin D deficiency (ICD-10 - E55.9) 11/19/2024 Vitamin D deficiency (ICD-10 - E55.9) 01/10/2025 Pain in right leg (ICD-10 - M79.604) 01/10/2025 Acute bilateral low back pain, unspecified whether sciatica present (ICD-10 - M54.50) 11/19/2024 Non morbid obesity (ICD-10 - E66.9) 05/20/2025 Iron deficiency anemia due to chronic blood loss (ICD-10 - D50.0) 05/20/2025 Colon cancer screening (ICD-10 - Z12.11) Plan Of Treatment Pending Test Test Name Order Date Mammogram 05/31/2025 Next Appt Details Provider Name:Holger Coffman , 11/18/2025 09:30:00 AM, [address] [facility] [address] [facility], [address], [place], [place], [id number], Insurance Providers Payer Name Payer Address Payer Phone Subscriber Number Group Number Insured Name Patient Relationship to Insured Coverage Start Date Coverage End Date KRAIG MARTINEZ [employer] [address] [place] [address] [phone] [id number] Nell León Self - patient is the insured Medical (General) History Medical History History ICD Code Hypertension Hyperthyroidism Vitamin D deficiency iron deficiency anemia Surgical History Surgery Date(Month/Year) x 3 Hysteroscopy- [facility] 06/20/2021 Hospitalization History Reason Date(Month/Year)
== END 2025-08-08 23:59 | disposition home or self-care (01) ==
LOC: RAD 07:38
PROVIDERS: PCP Family Medicine; Visit Provider Family Medicine
DX: Z12.31 Encounter for screening mammogram for malignant neoplasm of breast (principal); R92.323 Mammographic fibroglandular density, bilateral breasts
CPT/HCPCS: 77063; 77067

== ENCOUNTER 2025-10-03 09:50 | Outpatient (CLI) | payer BC, SELFPAY ==
[2025-10-03 15:09] LABS: Coronavirus 19, PCR Not Detected (NotDetected); Influenza A, PCR Not Detected (NotDetected); Influenza B, PCR Not Detected (NotDetected)
== END 2025-10-03 23:59 ==
LOC: LAB.DROPOF 10-05 09:51
PROVIDERS: PCP Family Medicine; Visit Provider Student in an Organized Health Care Education/Training Program
DX: J06.9 Acute upper respiratory infection, unspecified (principal)
CPT/HCPCS: 87631